=== PATIENT | male | born 1995 | race Caucasian/White ===

== ENCOUNTER → 2017-05-21 | Outpatient (CLI) | payer OTHER ==
--- NOTE | 2017-05-23 08:12 | MRI ---
EXAM DESCRIPTION: Lumbar Spine w/o Contrast MRI. CLINICAL HISTORY: LOW BACK PAIN COMPARISON: None. TECHNIQUE: Multiplanar, multiple standard sequences, non contrast MRI, lumbar spine. FINDINGS: L5-S1: Grade 1 retrolisthesis 3.4 mm. Minimal disc desiccation and posterior midline 7 mm bulge abutting the thecal sac. Minimal disc space loss. Mild canal narrowing. Bilateral foramina are patent. L4-5: Unremarkable. L3-4: Tiny posterior midline disc bulge. No disc space loss. Canal and foramina are patent. L2-3: Unremarkable. L1-2: Unremarkable. T12-L1: Unremarkable. Conus terminates at this level. Paravertebral soft tissues are negative.. Normal marrow signal in the vertebral bodies and the posterior elements. Vertebral bodies are not compressed at any level. IMPRESSION: 1. L5-S1 minimal disc desiccation and minimal disc space loss. Posterior midline protrusion with minimal impingement of the thecal sac. No canal or foraminal stenosis. No definite nerve impingement. 2. Tiny posterior midline disc bulge L3-4. Electronically signed by: Roland Oneill MD 05/23/2017 8:10 AM [facility]
== END | disposition home or self-care (01) ==
LOC: MRI 07:14
DX: M51.37 Other intervertebral disc degeneration, lumbosacral region (principal)